=== PATIENT | female | born 1985 | race Caucasian/White ===

== ENCOUNTER 2025-03-30 15:50 | Inpatient (IN) | payer MEDICAID ==
[~2025-03-30] VITALS: Ht 157.5 cm; Wt 130.6 kg
[2025-03-30] MEDS ORDERED: APIX5TAB PO (15:53)
[2025-03-30] MEDS ORDERED: ASPIRIN 81 MG TAB.CHEW ONE (16:49)
[2025-03-30] MEDS ORDERED: NITROGLYCERIN OINT 1 GM PACKET TP ONE (16:49)
[2025-03-30] MEDS: NITROGLYCERIN OINT 1 GM PACKET TP ONE (16:55)
[2025-03-30] MEDS: ASPIRIN 81 MG TAB.CHEW PO ONE (16:55)
[2025-03-30 16:56] LABS: PLATELET COUNT (AUTO) 253 K/uL (179-408); RED BLOOD CELL COUNT(AUTO) 4.79 MIL/uL (3.63-4.92); RED CELL DISTRIBUTION WIDTH 21.7 % (12.3-17.7); WHITE BLOOD COUNT (AUTO) 9.3 K/uL (3.8-11.8)
[2025-03-30 17:06] LABS: CREATININE 0.7 mg/dL (0.6-1.3); SODIUM SERUM 143 mmol/L (136-145); UREA NITROGEN, BLOOD 10 mg/dL (7-18)
[2025-03-30 17:12] LABS: ASPARTATE AMINOTRANSFERASE 7 U/L (15-37); TOTAL PROTEIN, SERUM 7.6 g/dL (6.4-8.2)
[2025-03-30] MEDS ORDERED: OXYCODONE/APAP 5-325 MG TABLET PO ONE (18:30)
[2025-03-30] MEDS ORDERED: ENOXAPARIN SODIUM 100 MG/ML DISP.SYRIN SQ ONE (18:54)
[2025-03-30] MEDS ORDERED: FUROSEMIDE 40 MG/4 ML VIAL ONE (18:54)
[2025-03-30] MEDS: ENOXAPARIN SODIUM 100 MG/ML DISP.SYRIN SQ ONE (18:55)
[2025-03-30] MEDS: FUROSEMIDE 40 MG/4 ML VIAL IV ONE (18:55)
[2025-03-30 19:00] VITALS: BP 124/75
[2025-03-30] MEDS ORDERED: MAGNESIUM HYDROXIDE 30 ML LIQUID UDC PO PRN (20:30)
[2025-03-30] MEDS ORDERED: ONDANSETRON 4 MG/2 ML VIAL IV PRN (20:30)
[2025-03-30] MEDS: MAG HYDROX/AL HYDROX/SIMETH 30 ML LIQUID UDC PO PRN (23:33)
[2025-03-30 23:36] VITALS: BP 102/66; TEMP 98.5; O2SAT 100
[2025-03-31] VITALS (8 sets, daily range): BP systolic 111–137; BP diastolic 58–74; TEMP 97.9–99.9; O2SAT 95–100
[2025-03-31] MEDS: PANTOPRAZOLE SODIUM 40 MG TABLET.DR PO SCH (06:05)
[2025-03-31] MEDS: DOSING PER PHARMACY-ENOXAPARIN XX SCH (06:45)
[2025-03-31 07:03] LABS: PLATELET COUNT (AUTO) 228 K/uL (179-408); RED BLOOD CELL COUNT(AUTO) 4.51 MIL/uL (3.63-4.92); RED CELL DISTRIBUTION WIDTH 21.4 % (12.3-17.7); WHITE BLOOD COUNT (AUTO) 8.3 K/uL (3.8-11.8)
[2025-03-31 07:30] LABS: CREATININE 0.7 mg/dL (0.6-1.3); SODIUM SERUM 141.0 mmol/L (136-145); UREA NITROGEN, BLOOD 8.0 mg/dL (7-18)
[2025-03-31] MEDS ORDERED: APIXABAN 5 MG TABLET PO SCH (09:00)
[2025-03-31 09:30] LABS: EOSINOPHILS % (MANUAL) 2 % (0-8); LYMPHOCYTES % (MANUAL) 23 % (20-40); MONOCYTES % (MANUAL) 8 % (2-10); NEUTROPHILS % (MANUAL) 67 % (42-75); PLATELET ESTIMATE ADEQUATE
[2025-03-31] MEDS: ASPIRIN 81 MG TAB.CHEW PO SCH (09:40)
[2025-03-31] MEDS: ENOXAPARIN SODIUM 120 MG/0.8 ML SYRINGE SQ SCH (09:47)
[2025-03-31] MEDS ORDERED: FERR325T24 PO (09:50)
[2025-03-31] MEDS ORDERED: POLY510P31 PO (09:51)
[2025-03-31] MEDS ORDERED: ALBU18HF2 IH (09:51)
[2025-03-31 14:01] LABS: IRON, SERUM 20 ug/dL (50-175)
[2025-03-31] MEDS: diphenhydrAMINE 50 MG/1 ML VIAL IV ONE ×2 (14:09→22:08)
[2025-03-31] MEDS ORDERED: IOHEXOL 350 100 ML INFUS..BTL ONE (22:31)
[2025-04-01] VITALS: BP 111/56; TEMP 98.6; O2SAT 95
[2025-04-01 04:00] VITALS: BP 126/79; TEMP 98.4; O2SAT 96
[2025-04-01 07:14] LABS: PLATELET COUNT (AUTO) 274 K/uL (179-408); RED BLOOD CELL COUNT(AUTO) 5.32 MIL/uL (3.63-4.92); RED CELL DISTRIBUTION WIDTH 21.4 % (12.3-17.7); WHITE BLOOD COUNT (AUTO) 12.0 K/uL (3.8-11.8)
[2025-04-01 07:36] LABS: CREATININE 0.6 mg/dL (0.6-1.3); SODIUM SERUM 139.0 mmol/L (136-145); UREA NITROGEN, BLOOD 9.0 mg/dL (7-18)
[2025-04-01 07:54] VITALS: BP 125/61; TEMP 97.7; O2SAT 97
[2025-04-01 08:32] LABS: LYMPHOCYTES % (MANUAL) 11 % (20-40); MONOCYTES % (MANUAL) 1 % (2-10); NEUTROPHILS % (MANUAL) 88 % (42-75); PLATELET ESTIMATE ADEQUATE
[2025-04-01 11:03] VITALS: BP 103/51; TEMP 97.6; O2SAT 98
[2025-04-01] MEDS: SOD FERRIC GLUC COMPLX/SUCROSE 125 MG in IV NORMAL SALINE 100 ML IV SCH (14:17)
[2025-04-01 15:18] VITALS: BP 113/43; TEMP 97.6; O2SAT 97
[2025-04-01 19:00] VITALS: BP 107/54; TEMP 97.9; O2SAT 96
[2025-04-02] VITALS (10 sets, daily range): BP systolic 101–123; BP diastolic 42–65; TEMP 97.6–98.6; O2SAT 96–100
[2025-04-02 06:52] LABS: PLATELET COUNT (AUTO) 246 K/uL (179-408); RED BLOOD CELL COUNT(AUTO) 4.94 MIL/uL (3.63-4.92); RED CELL DISTRIBUTION WIDTH 21.5 % (12.3-17.7); WHITE BLOOD COUNT (AUTO) 12.5 K/uL (3.8-11.8)
[2025-04-02 06:56] LABS: CREATININE 0.6 mg/dL (0.6-1.3); SODIUM SERUM 140.0 mmol/L (136-145); UREA NITROGEN, BLOOD 14.0 mg/dL (7-18)
[2025-04-02 07:51] LABS: FIBRINOGEN ACTIVITY 395.0 mg/dL (210-360)
[2025-04-02] MEDS: APIXABAN 5 MG TABLET PO SCH (09:25)
[2025-04-02] MEDS ORDERED: LEVALBUTEROL HCL NEB 0.63 MG/3 ML NEBU NEB SCH (13:30)
[2025-04-02] MEDS: ALBUTEROL SULFATE 1.25 MG/3 ML NEBU NEB SCH (13:42)
[2025-04-02] MEDS: BENZONATATE 100 MG CAPSULE PO SCH (14:12)
[2025-04-02 19:59] LABS: *BILIRUBIN,URIN NEGATIVE (NEGATIVE); *BLOOD, URINE NEGATIVE (NEGATIVE); *CLARITY,URINE CLEAR (CLEAR); *COLOR,URINE DARK YELLOW (YELLOW); *KETONES,URINE TRACE (NEGATIVE); *PROTEIN,URINE NEGATIVE (NEGATIVE); *UROBILINOGEN,URINE 0.2 E.U./dl (NORMAL); LEUKOCYTE ESTERASE ,URINE NEGATIVE (NEGATIVE); NITRITE, URINE NEGATIVE (NEGATIVE); UGLUCOSE NEGATIVE (NEGATIVE)
[2025-04-02 20:16] LABS: SQUAMOUS EPITHELIAL CELL,UR FEW /HPF (NONE SEEN)
[2025-04-03] VITALS (13 sets, daily range): BP systolic 95–140; BP diastolic 37–76; TEMP 98–98.2; O2SAT 95–100
[2025-04-03 00:07] LABS: HOMOCYSTEINE, PLASMA 6.4 umol/L (0.0-14.5)
[2025-04-03 01:09] LABS: *IMMUNOGLOBULIN G, SERUM 1223 mg/dL (586-1602); CARCINOEMBRYONIC AG (CEA) 1.3 ng/mL (0.0-4.7); FOLATE (FOLIC ACID), SERUM 9.6 ng/mL (>3.0); IMMUNOGLOBULIN A, SERUM 280 mg/dL (87-352); IMMUNOGLOBULIN M, SERUM 76 mg/dL (26-217)
[2025-04-03 03:08] LABS: FREE KAPPA LT CHAINS SERUM 13.0 mg/L (3.3-19.4); FREE LAMBDA LT CHAIN SERUM 15.1 mg/L (5.7-26.3); KAPPA/LAMBDA RATIO SERUM 0.86 (0.26-1.65)
[2025-04-03 06:39] LABS: PLATELET COUNT (AUTO) 239 K/uL (179-408); RED BLOOD CELL COUNT(AUTO) 4.96 MIL/uL (3.63-4.92); RED CELL DISTRIBUTION WIDTH 21.8 % (12.3-17.7); WHITE BLOOD COUNT (AUTO) 11.0 K/uL (3.8-11.8)
[2025-04-03 07:00] LABS: CREATININE 0.6 mg/dL (0.6-1.3); SODIUM SERUM 141.0 mmol/L (136-145); UREA NITROGEN, BLOOD 18.0 mg/dL (7-18)
[2025-04-03] MEDS: AZITHROMYCIN 250 MG TABLET PO ONE (11:14)
[2025-04-03] MEDS: PREGABALIN 25 MG CAPSULE PO SCH (11:25)
[2025-04-03] MEDS: TRIAMCINOLONE ACET 0.1% CREAM 15 GM TUBE TOP SCH (12:48)
[2025-04-03] MEDS: ACETAMINOPHEN 325 MG TABLET PO PRN (21:02)
[2025-04-04] VITALS (12 sets, daily range): BP systolic 105–116; BP diastolic 46–58; TEMP 97.5–98.2; O2SAT 97–100
[2025-04-04] MEDS: AZITHROMYCIN 250 MG TABLET PO SCH (08:54)
[2025-04-04] MEDS ORDERED: APIX5TAB PO (13:26)
[2025-04-04] MEDS ORDERED: PREG50CA PO (13:26)
[2025-04-04] MEDS ORDERED: METH4TAB3 PO (13:26)
[2025-04-04] MEDS ORDERED: AZIT250T13 PO (13:26)
[2025-04-04] MEDS ORDERED: ASCO500C18 PO (13:26)
[2025-04-04] MEDS ORDERED: FERR325T24 PO (13:26)
[2025-04-04] MEDS ORDERED: ALBU18HF2 IH (13:26)
[2025-04-04 19:09] LABS: BETA-2-GLYCOPROTEIN IGG/M/A < 9 (0-25)
[2025-04-05 02:14] VITALS: O2SAT 98
[2025-04-05 02:24] VITALS: O2SAT 100
[2025-04-05 04:00] VITALS: BP 108/57; TEMP 97.9; O2SAT 99
[2025-04-05 07:38] VITALS: O2SAT 98
[2025-04-05 07:53] VITALS: O2SAT 100
[2025-04-06 18:08] LABS: ADENOVIRUS Not Detected (Not Detected); CORONAVIRUS 229E Not Detected (Not Detected); CORONAVIRUS HKU1 Not Detected (Not Detected); CORONAVIRUS NL63 Not Detected (Not Detected); CORONAVIRUS OC43 Not Detected (Not Detected); NP BORDETELLA PERTUSIS Not Detected (Not Detected); NP CHLAMYDOPHILA PNEUMONIAE Not Detected (Not Detected); NP HUMAN METAPNEUMOVIRUS Not Detected (Not Detected); NP HUMAN RHINO/ENTERO VIRUS Not Detected (Not Detected); NP INFLUENZA A Not Detected (Not Detected); NP INFLUENZA A/H1 Not Detected (Not Detected); NP INFLUENZA A/H1-2009 Not Detected (Not Detected); NP INFLUENZA A/H3 Not Detected (Not Detected); NP INFLUENZA B Not Detected (Not Detected); NP MYCOPLASMA PNEUMONIAE Not Detected (Not Detected); NP PARAINFLUENZA 1 Not Detected (Not Detected); NP PARAINFLUENZA 2 Not Detected (Not Detected); NP PARAINFLUENZA 3 Not Detected (Not Detected); NP PARAINFLUENZA 4 Not Detected (Not Detected); NP RESPIRATORY SYNCYTIAL VIRUS Not Detected (Not Detected)
[2025-04-06 22:07] LABS: *PROTEIN S FREE 140 % (61-136); PTT-LA 43.2 sec (0.0-43.5); THROMBIN TIME 18.8 sec (0.0-23.0)
[2025-04-09 08:07] LABS: LUPUS INTERPRETATION Comment: (.)
[2025-04-09 18:07] LABS: A/G RATIO 0.8 (0.7-1.7); BETA GLOBULIN 1.3 g/dL (0.7-1.3); GLOBULIN, TOTAL 3.8 g/dL (2.2-3.9); M-SPIKE Not Observed g/dL (Not Observed); PROTEIN, TOTAL 7.0 g/dL (6.0-8.5)
== END 2025-04-05 10:15 | disposition home or self-care (01) | DRG 145 ==
LOC: ER 15:50 → TELE3 21:43 → MEDSURG3 04-02 11:05
DX: J20.9 Acute bronchitis, unspecified (principal); D68.59 Other primary thrombophilia; J06.9 Acute upper respiratory infection, unspecified; Z68.43 Body mass index [BMI] 50.0-59.9, adult; E66.01 Morbid (severe) obesity due to excess calories; Z82.3 Family history of stroke; D72.829 Elevated white blood cell count, unspecified; D50.9 Iron deficiency anemia, unspecified; N83.202 Unspecified ovarian cyst, left side; N83.201 Unspecified ovarian cyst, right side; G62.9 Polyneuropathy, unspecified; G47.33 Obstructive sleep apnea (adult) (pediatric); Z86.718 Personal history of other venous thrombosis and embolism; Z86.711 Personal history of pulmonary embolism; Z88.0 Allergy status to penicillin; Z91.041 Radiographic dye allergy status; Z79.01 Long term (current) use of anticoagulants; Z95.828 Presence of other vascular implants and grafts
CPT/HCPCS: 36415; 70030-TC; 71045; 71275; 72131; 82378; 82746; 82784; 83090; 83550; 83735; 84100; 84155; 84165; 84443; 84484; 85025; 85305; 85613; 85730; 86334; 87086; 93307; 94640; 94664; 94760; A4606; A4663; G0378; J1200; J1650; J1938; J2916; J2919; Q0144; Q9967